=== PATIENT | male | born 1965 | race Two or more races ===

== ENCOUNTER 2020-08-01 10:30 | Emergency (ER) | payer OTHER ==
[~2020-08-01] VITALS: Ht 182.9 cm; Wt 74.4 kg
== END 2020-08-01 12:25 | disposition home or self-care (01) ==
LOC: ER 10:30
DX: M62.838 Other muscle spasm (principal); M54.2 Cervicalgia

== ENCOUNTER 2021-11-22 15:08 | Emergency (ER) | payer OTHER ==
[~2021-11-22] VITALS: Ht 182.9 cm; Wt 77.1 kg
== END 2021-11-22 17:57 | disposition home or self-care (01) ==
LOC: ER 15:08
DX: R25.2 Cramp and spasm (principal); Z91.011 Allergy to milk products; M54.2 Cervicalgia